=== PATIENT | male | born 1955 | race Caucasian/White ===

== ENCOUNTER → 2023-06-18 10:43 | Outpatient (REF) | payer OTHER, SELFPAY | LOC: MRI 3T 10:43 | PROVIDERS: ATTENDING PHYSICIAN Specialist; FAMILY PHYSICIAN Family Medicine | DX: K86.2 Cyst of pancreas (principal) | CPT/HCPCS: 74183; A9575 ==

== ENCOUNTER → 2023-07-02 11:56 | Outpatient (REF) | payer OTHER, SELFPAY | LOC: RAD 11:56 | PROVIDERS: ATTENDING PHYSICIAN Family Medicine | DX: J84.10 Pulmonary fibrosis, unspecified (principal) | CPT/HCPCS: 71260; Q9967 ==

== ENCOUNTER → 2023-09-23 12:32 | Outpatient (REF) | payer OTHER, SELFPAY | LOC: RCS 12:32 | PROVIDERS: ATTENDING PHYSICIAN Internal Medicine; FAMILY PHYSICIAN Family Medicine | DX: R00.0 Tachycardia, unspecified (principal) | CPT/HCPCS: 93225; 93226 ==

== ENCOUNTER → 2024-01-20 10:26 | Outpatient (REF) | payer OTHER, SELFPAY | LOC: RAD 10:26 | PROVIDERS: ATTENDING PHYSICIAN Internal Medicine Critical Care Medicine; FAMILY PHYSICIAN Family Medicine | DX: J84.9 Interstitial pulmonary disease, unspecified (principal) | CPT/HCPCS: 71250 ==

== ENCOUNTER → 2024-02-23 13:49 | Outpatient (REF) | payer OTHER, SELFPAY ==
[2024-02-23 15:02] LABS: Phosphorus 3.4 mg/dl (2.5-4.5)
== END ==
LOC: OIDL 13:49
PROVIDERS: ATTENDING PHYSICIAN Internal Medicine Hematology & Oncology
DX: D64.9 Anemia, unspecified (principal); D50.0 Iron deficiency anemia secondary to blood loss (chronic)
CPT/HCPCS: 84100

== ENCOUNTER → 2024-04-01 11:07 | Outpatient (REF) | payer OTHER, SELFPAY | LOC: RCS 11:07 | PROVIDERS: ATTENDING PHYSICIAN Internal Medicine; FAMILY PHYSICIAN Family Medicine | DX: R55 Syncope and collapse (principal); I10 Essential (primary) hypertension; R00.0 Tachycardia, unspecified; I77.810 Thoracic aortic ectasia | CPT/HCPCS: 93306 ==

== ENCOUNTER → 2024-06-08 09:16 | Outpatient (REF) | payer OTHER, SELFPAY ==
[2024-06-08 09:54] LABS: % Basophils 1.8 % (0-2); % Eosinophils 1.5 % (0-6); % Immature Granulocytes 3.3 % (0-0.5); % Monocytes 16.7 % (1.7-9.3); % Neutrophils 45.7 % (42.2-75.2); Absolute Basophils 0.1 10^3/uL (0-0.2); Absolute Eosinophils 0.1 10^3/uL (0-0.7); Absolute Immature Granulocytes 0.1 10^3/uL (0-0.05); Absolute Monocytes 0.6 10^3/uL (0.1-0.6); Absolute Neutrophils 1.5 10^3/uL (1.4-6.5); Hematocrit 30.6 % (39.0-52.0); Hemoglobin 10.6 g/dL (13.0-18.0); Mean Corp Hgb Conc. 34.6 g/dL (33.0-37.0); Mean Platelet Volume 9.8 fL (7.4-10.4); Nucleated Red Blood Cells % 0 % (-); Platelet Count 160 10^3/uL (130-400); Red Blood Cell Count 3.03 10^6/uL (4.70-6.10); Red Cell Dist. Width 12.4 % (11.5-14.5); White Blood Cell Count 3.4 10^3/uL (4.8-10.8)
[2024-06-08 09:55] VITALS: BP 123/71; BP_SYST 84
[2024-06-08 10:13] LABS: INR 1.01; PT 13.6 Sec (11.4-14.6)
[2024-06-08 11:40] VITALS: BP 111/69
== END ==
LOC: RADI 09:16
PROVIDERS: ATTENDING PHYSICIAN Internal Medicine Hematology & Oncology; FAMILY PHYSICIAN Family Medicine; OTHER PHYSICIAN Physician Assistant
DX: D50.0 Iron deficiency anemia secondary to blood loss (chronic) (principal); D68.8 Other specified coagulation defects
CPT/HCPCS: 88305; 88311; 88312; 36415; 38222; 77012; 85025; 85610; 88313

== ENCOUNTER 2024-07-02 06:18 | Day surgery (SDC) | payer OTHER, SELFPAY | END 2024-07-02 14:18 | disposition home or self-care (01) | LOC: GI 06:18 | PROVIDERS: ATTENDING PHYSICIAN Specialist | DX: K22.89 Other specified disease of esophagus (principal); I89.0 Lymphedema, not elsewhere classified; I89.8 Other specified noninfective disorders of lymphatic vessels and lymph nodes | CPT/HCPCS: 43239; 88305 ==

== ENCOUNTER → 2024-09-07 11:42 | Outpatient (REF) | payer OTHER, SELFPAY | LOC: RCS 11:42 | PROVIDERS: ATTENDING PHYSICIAN Internal Medicine; FAMILY PHYSICIAN Family Medicine | DX: R06.09 Other forms of dyspnea (principal); R93.1 Abnormal findings on diagnostic imaging of heart and coronary circulation; E78.00 Pure hypercholesterolemia, unspecified | CPT/HCPCS: 78452; 93017; A9500 ==